=== PATIENT | female | born 1970 | race African-American/Black ===

== ENCOUNTER → 2020-05-06 | Outpatient (CLI) | payer OTHER | LOC: LAB 16:21 | PROVIDERS: ATTEND Hospitalist | DX: Z20.828 Contact with and (suspected) exposure to other viral communicable diseases (principal) ==

== ENCOUNTER → 2020-06-09 | Outpatient (CLI) | payer OTHER | LOC: LAB 12:06 | PROVIDERS: ATTEND Nurse Practitioner | DX: U07.1 COVID-19 (principal) ==